=== PATIENT | male | born 1965 ===

== ENCOUNTER 2016-11-06 21:02 | Emergency (ER) | payer SELFPAY ==
[2016-11-06 21:29] VITALS: BP 124/86; PULSE 96; RESP 20; TEMP 98.1; O2SAT 96
[2016-11-06] MEDS ORDERED: DiphenhydrAMINE 50 mg/ml Inj IM STA (21:43)
--- NOTE | 2016-11-06 21:46 | C.PDOC ---
History Of Present Illness 51 y.o male with seasonal allergies complaining of acute symptoms, and no relief with Zyrtec. Patient states his doctor usually gives him allergy shot however unable to until see him until end of November. He reports bilateral eye itching, tearing, sneezing. Patient is requesting allergy shot. Denies fever, cough, SOB. Time Seen by Provider: 11/06/16 21:34 Chief Complaint (Nursing): Cough, Cold, Congestion History Per: Patient History/Exam Limitations: no limitations Onset/Duration Of Symptoms: Days Current Symptoms Are (Timing): Still Present Sick Contacts (Context): None Past Medical History Reviewed: Historical Data, Nursing Documentation, Vital Signs Vital Signs: Last Vital Signs Temp 98.1 F 11/06/16 21:26 Pulse 96 H 11/06/16 21:26 Resp 20 11/06/16 22:43 BP 124/86 11/06/16 21:26 Pulse Ox 96 11/06/16 21:46 - Medical History PMH: No Chronic Diseases Family History: States: Unknown Family Hx - Social History Hx Alcohol Use: Yes Hx Substance Use: No - Immunization History Hx Tetanus Toxoid Vaccination: No Hx Influenza Vaccination: No Hx Pneumococcal Vaccination: No Review Of Systems Constitutional: Negative for: Fever ENT: Positive for: Nose Discharge, Nose Congestion. Negative for: Ear Pain, Throat Pain Cardiovascular: Negative for: Chest Pain, Palpitations Respiratory: Negative for: Cough, Shortness of Breath Gastrointestinal: Negative for: Vomiting, Abdominal Pain, Diarrhea Skin: Negative for: Rash Neurological: Negative for: Headache, Dizziness Physical Exam - Physical Exam Appears: Non-toxic, No Acute Distress Skin: Warm, Dry, No Diaphoretic, No Pale Head: Atraumatic, Normacephalic Eye(s): bilateral: Normal Inspection, EOMI, Eyelid Inflammation, Other ( conjunctival injection, tearing) Ear(s): Bilateral: Normal Nose: Normal Oral Mucosa: Moist Neck: Normal ROM Chest: Symmetrical Cardiovascular: Rhythm Regular Respiratory: No Rhonchi, No Wheezing Extremity: Bilateral: Atraumatic, Normal ROM Neurological/Psych: Oriented x3, Normal Speech ED Course And Treatment O2 Sat by Pulse Oximetry: 96 Medical Decision Making Medical Decision Makin y.o male with seasonal allergies complaining of acute symptoms and no relief with Zyrtec. Patient states his doctor usually gives him allergy shot however unable to until see him until end of November. Patient is requesting allergy shot. I explain to patient we do not offer this in the ER. Offer Benadryl IM and patient accepts. Also recommend nasal spray and eye drops to help with itching. Disposition Counseled Patient/Family Regarding: Need For Followup - Disposition Disposition: HOME/ ROUTINE Disposition Time: 21:45 Condition: STABLE Additional Instructions: Try taking over the counter antihistamine (Claritin, Grecia, Zyrtec) or Decongestant. Try over the counter nasal spray Flonase daily. Follow up with your primary medical doctor or clinic in 1 week for further evaluation. Instructions: Allergic Rhinitis (ED) - POA Present On Arrival: None - Clinical Impression Clinical Impression: Allergic rhinitis
[2016-11-06] MEDS ORDERED: DiphenhydrAMINE 50 mg/ml Inj ONE (21:53)
== END 2016-11-06 22:43 | disposition home or self-care (01) ==
LOC: C.ER 21:02
DX: J30.9 Allergic rhinitis, unspecified (principal)
CPT/HCPCS: 96372; 99283; J1200

== ENCOUNTER 2017-08-11 06:28 | Emergency (ER) | payer OTHER ==
[2017-08-11 06:36] VITALS: BP 112/72; RESP 20; TEMP 100
[2017-08-11] MEDS ORDERED: Naproxen 550 mg Tab PO STA (07:30)
--- NOTE | 2017-08-11 07:33 | C.PDOC ---
History Of Present Illness 52-year-old male, presents to the emergency department with complaints of fever , chills, productive cough, body aches and pleuritic pain since last night. Patient denies nausea/vomiting, back pain, dizziness, shortness of breath, or any other associated symptoms. No other complaints at this time. Time Seen by Provider: 08/11/17 07:09 Chief Complaint (Nursing): Cough, Cold, Congestion History Per: Patient History/Exam Limitations: no limitations Onset/Duration Of Symptoms: Days Current Symptoms Are (Timing): Still Present Past Medical History Reviewed: Historical Data, Nursing Documentation, Vital Signs Vital Signs: Last Vital Signs Temp 100 F H 08/11/17 06:34 Pulse 100 H 08/11/17 06:34 Resp 20 08/11/17 06:34 BP 112/72 08/11/17 06:34 Pulse Ox 98 08/11/17 07:35 Family History: States: No Known Family Hx - Social History Hx Alcohol Use: No Hx Substance Use: No - Immunization History Hx Tetanus Toxoid Vaccination: No Hx Influenza Vaccination: No Hx Pneumococcal Vaccination: No Review Of Systems Constitutional: Positive for: Fever, Chills, Malaise Cardiovascular: Positive for: Chest Pain Respiratory: Positive for: Cough, Sputum. Negative for: Shortness of Breath Gastrointestinal: Negative for: Vomiting Musculoskeletal: Negative for: Neck Pain, Back Pain Neurological: Negative for: Weakness, Numbness, Headache, Dizziness Physical Exam - Physical Exam Appears: Non-toxic, No Acute Distress Skin: Warm, Dry, No Rash Head: Atraumatic, Normacephalic Eye(s): bilateral: Normal Inspection Nose: Normal Oral Mucosa: Moist Lips: Normal Appearing Throat: No Erythema, No Exudate Neck: Normal ROM, Supple Cardiovascular: Rhythm Regular (Tachycardic), No Murmur Respiratory: Normal Breath Sounds, No Accessory Muscle Use, No Rales, No Rhonchi , No Wheezing Extremity: Normal ROM Neurological/Psych: Oriented x3, Normal Speech ED Course And Treatment O2 Sat by Pulse Oximetry: 98 (on RA) Pulse Ox Interpretation: Normal Disposition - Disposition Referrals: [facility] at [facility] [Outside] Disposition: HOME/ ROUTINE Disposition Time: 07:40 Condition: STABLE Additional Instructions: FOLLOW UP WITH YOUR DOCTOR/CLINIC IN 1-2 DAYS USE MEDICATIONS DIRECTED DRINK PLENTY OF FLUIDS RETURN TO ER IF SYMPTOMS WORSEN Prescriptions: Benzonatate [Tessalon Perles] 100 mg PO BID PRN #15 sgl PRN Reason: Cough Naproxen 375 mg PO BID PRN #20 tablet PRN Reason: pain Oseltamivir Phosphate [Tamiflu] 75 mg PO BID #10 capsule Instructions: Viral Syndrome (ED) Forms: [employer] (Malian) Print Language: KYRGYZ - Clinical Impression Clinical Impression: Viral disease, Influenza-like illness - Scribe Statement The provider has reviewed the documentation as recorded by the Scribe (Lucie Donovan) All medical record entries made by the Scribe were at my direction and personally dictated by me. I have reviewed the chart and agree that the record accurately reflects my personal performance of the history, physical exam, medical decision making, and the department course for this patient. I have also personally directed, reviewed, and agree with the discharge instructions and disposition.
--- NOTE | 2017-08-11 07:34 | C.PDOC ---
Time Seen by Provider: 08/11/17 07:09 Chief Complaint (Nursing): Cough, Cold, Congestion Past Medical History Vital Signs: Last Vital Signs Temp 100 F H 08/11/17 06:34 Pulse 100 H 08/11/17 06:34 Resp 20 08/11/17 06:34 BP 112/72 08/11/17 06:34 Pulse Ox 98 08/11/17 06:34 Family History: States: Unknown Family Hx - Social History Hx Alcohol Use: No Hx Substance Use: No - Immunization History Hx Tetanus Toxoid Vaccination: No Hx Influenza Vaccination: No Hx Pneumococcal Vaccination: No ED Course And Treatment O2 Sat by Pulse Oximetry: 98 Disposition Counseled Patient/Family Regarding: Diagnosis, Need For Followup, Rx Given - Disposition Referrals: [facility] at [facility] [Outside] Disposition: HOME/ ROUTINE Disposition Time: 07:40 Condition: STABLE Additional Instructions: FOLLOW UP WITH YOUR DOCTOR/CLINIC IN 1-2 DAYS USE MEDICATIONS DIRECTED DRINK PLENTY OF FLUIDS RETURN TO ER IF SYMPTOMS WORSEN Prescriptions: Benzonatate [Tessalon Perles] 100 mg PO BID PRN #15 sgl PRN Reason: Cough Naproxen 375 mg PO BID PRN #20 tablet PRN Reason: pain Oseltamivir Phosphate [Tamiflu] 75 mg PO BID #10 capsule Instructions: Viral Syndrome (ED) Forms: [employer] (Wolof) Print Language: PARAGUAYAN - POA Present On Arrival: None - Clinical Impression Clinical Impression: Viral disease, Influenza-like illness
[2017-08-11] MEDS ORDERED: Naproxen 550 mg Tab PO ONE (07:49)
[2017-08-11 07:57] VITALS: PULSE 97; O2SAT 100
== END 2017-08-11 07:57 | disposition home or self-care (01) ==
LOC: C.ER 06:28
DX: J11.1 Influenza due to unidentified influenza virus with other respiratory manifestations (principal); B34.9 Viral infection, unspecified